=== PATIENT | female | born 1955 | race Caucasian/White ===

== ENCOUNTER 2018-03-20 15:12 | Observation (INO) | payer OTHER ==
--- NOTE | 2018-03-20 15:33 | ED ---
HPI Chest Pain - HPI Summary HPI Summary: A 62 y/o F presents to ED with c/o mid-sternal CP onset approx noon this date. The CP radiates to her jaw and epigastric abd intermittently. CP is rated as a 9 out of 10 at bedside and described as sharp. Associated sx: SOB, diaphoresis. Pt had a stress test in June 2017. She takes a baby aspirin daily. PMHx: DM, HTN; but denies COPD, PE, CT. - History of Current Complaint Chief Complaint: EDChestPainROMI Time Seen by Provider: 03/20/18 15:32 Hx Obtained From: Patient Onset/Duration: Started Hours Ago, Atraumatic, Still Present Timing: Constant Initial Severity: Severe Current Severity: Severe Pain Intensity: 8 Pain Scale Used: 0-10 Numeric Chest Pain Location: Mid Sternal Chest Pain Radiates: Yes Chest Pain Radiates To:: Jaw, Epigastric Character: Sharp/Stabbing Alleviating Factor(s): Upright Position Associated Signs and Symptoms: Positive: Shortness of Breath, Diaphoresis - Allergy/Home Medications Allergies/Adverse Reactions: Allergies Allergy/AdvReac Type Severity Reaction Status Date / Time insulin detemir Allergy Hives Verified 03/20/18 15:32 [From Levemir U-100 Insulin] Home Medications: Home Medications Aspirin 81 mg CHEW TAB* [Aspirin Low Dose TAB*] 81 mg PO DAILY 03/20/18 [ History Confirmed 03/20/18] Calcium Carbonate [Calcium] 500 mg PO DAILY 03/20/18 [History Confirmed 03/20/18 ] Dulaglutide (NF) [Trulicity (NF)] 0.75 mg SUBCUT WEEKLY 03/20/18 [History Confirmed 03/20/18] Ferrous Sulfate TAB* 325 mg PO DAILY 03/20/18 [History Confirmed 03/20/18] Insulin Glargine,Hum.rec.anlog [Basaglar Kwikpen U-100] 95 unit SUBCUT DAILY 07/07 [History Confirmed 03/20/18] Lisinopril TAB* [Prinivil TAB*] 10 mg PO DAILY 03/20/18 [History Confirmed 03/20] Metformin ER (NF) 1,000 mg PO BID 03/20/18 [History Confirmed 03/20/18] Multivitamins/Minerals TAB* [Theragran/minerals TAB*] 1 tab PO DAILY 03/20/18 [ History Confirmed 03/20/18] Omeprazole CAP* [Prilosec CAP* 20 MG] 40 mg PO DAILY 03/20/18 [History Confirmed 03/20/18] Rosuvastatin (NF) [Crestor] 20 mg PO DAILY 03/20/18 [History Confirmed 03/20/18] PMH/Surg Hx/FS Hx/Imm Hx Previously Healthy: No Endocrine/Hematology History: Reports: Hx Diabetes Cardiovascular History: Reports: Hx Hypertension Denies: Hx Myocardial Infarction Respiratory History: Denies: Hx Chronic Obstructive Pulmonary Disease (COPD), Hx Pulmonary Embolism Infectious Disease History: No Infectious Disease History: Denies: Traveled Outside the [place] in Last 30 Days - Social History Occupation: Unemployed - OTHER Lives: With Family Alcohol Use: None Hx Substance Use: No Substance Use Type: Reports: None Hx Tobacco Use: Yes Smoking Status (MU): Former Smoker Review of Systems Positive: Skin Diaphoresis. Negative: Fever Positive: Chest Pain Positive: Shortness Of Breath Positive: Abdominal Pain - radiating from CP Musculoskeletal: Other - pos: jaw pain radiating from CP All Other Systems Reviewed And Are Negative: Yes Physical Exam - Summary Physical Exam Summary: VITAL SIGNS: Reviewed. GENERAL: Patient is a well-developed, obese female who is lying comfortable in the stretcher. Patient is in mild distress secondary to SOB and CP. She is able to speak full sentences are bedside. HEAD AND FACE: No signs of trauma. No ecchymosis, hematomas or skull depressions. No sinus tenderness. EYES: PERRLA, EOMI x 2, No injected conjunctiva, no nystagmus. EARS: Hearing grossly intact. Ear canals and tympanic membranes are within normal limits. MOUTH: Oropharynx within normal limits. NECK: Supple, trachea is midline, no adenopathy, no JVD, no carotid bruit, no c- spine tenderness, neck with full ROM. CHEST: Symmetric, no tenderness at palpation. No reproducible CP. LUNGS: Clear to auscultation bilaterally. No wheezing or crackles. CVS: Regular rate and rhythm, S1 and S2 present, no murmurs or gallops appreciated. ABDOMEN: Soft, non-tender. No signs of distention. No rebound, no guarding, and no masses palpated. Bowel sounds are normal. EXTREMITIES: FROM in all major joints, no edema, no cyanosis or clubbing. NEURO: Alert and oriented x 3. No acute neurological deficits. Speech is normal and follows commands. SKIN: Dry and warm Triage Information Reviewed: Yes Vital Signs On Initial Exam: Initial Vitals Temp Pulse Resp BP Pulse Ox 98.2 F 68 20 130/70 97 03/20/18 15:23 03/20/18 15:23 03/20/18 15:23 03/20/18 15:23 03/20/18 15:23 Vital Signs Reviewed: Yes Diagnostics - Vital Signs Vital Signs Temp Pulse Resp BP Pulse Ox 03/20/18 15:23 98.2 F 68 20 130/70 97 - Laboratory Result Diagrams: 03/21/18 05:26 03/21/18 05:26 Lab Statement: Any lab studies that have been ordered have been reviewed, and results considered in the medical decision making process. - Radiology CXR Xray Interpretation: Positive (See Comments) - IMPRESSION: LOW LUNG VOLUMES, SMALL LEFT BASILAR INFILTRATE. ED provider has reviewed this report. This report is only to be considered final once signed by the Provider(s) as displayed in the "<Electronically Signed by >" field (s). Absence of a signature indicates the report is in a draft status and still needs to be finalized. In the event this document was created by someone other than the signing Provider, the individual initiating the document will be listed in the "Entered by:" or "Dictated by:" wilson. 1 of 1 Radiology Interpretation Completed By: Radiologist - EKG 1536 Cardiac Rate: NL - 74bpm EKG Rhythm: Sinus Rhythm ST Segment: Normal - no ST elevation Chest Pain Course/Dx - Course Assessment/Plan: A 62 y/o F presents to ED with c/o mid-sternal CP onset approx noon this date. The CP radiates to her jaw and epigastric abd intermittently. CP is rated as a 9 out of 10 at bedside and described as sharp. Associated sx: SOB, diaphoresis. Pt had a stress test in June 2017. She takes a baby aspirin daily. PMHx: DM, HTN; but denies COPD, PE, CT. Blood test result without any significant abnormality except for WBCs of 19.1, glucose 178, lactic acid is 2.5, magnesium 1.5 for which the patient was given magnesium IV. Chest x-ray impression, shows low lung volumes, small left basilar infiltrate. EKG shows no ST elevations. Im the ED course the patient was given Levaquin for the pneumonia, IV fluids and Toradol for the pain. Because of the patient's comorbidities and the presentation I decided to admit the patient to the hospital services. Therefore I discuss my physical exam, findings and test results with Dr. Kline from the hospitalist services who accepted the patient for admission. Patient is hemodynamically stable alert and oriented 3. - Chest Pain Differential Diagnosis/HQI/PQRI: Acute CT, ACS, Angina, CHF, Chest Wall, GI Disease, Lower Respiratory Infection, Pulmonary Edema - Diagnoses Provider Diagnoses: PNA (pneumonia) - Provider Notifications Discussed Care Of Patient With: Ubaldo Scanlon - hospitalist PA Time Discussed With Above Provider: 17:19 Instructed by Provider To: Admit As Inpatient Discharge - Sign-Out/Discharge Documenting (check all that apply): Patient Departure - ADM - Discharge Plan Condition: Stable Disposition: ADMITTED TO [facility] - Billing Disposition and Condition Condition: STABLE Disposition: Admitted to [facility] - Attestation Statements Document Initiated by Scribe: Yes Documenting Scribe: Kyle Antonio Provider For Whom Scribe is Documenting (Include Credential): Dr. Gómez Diaz MD Scribe Attestation: Kyle Elaine scribed for Dr. Gómez Diaz MD on 03/21/18 at 1825. Scribe Documentation Reviewed: Yes Provider Attestation: The documentation as recorded by the Kyle white accurately reflects the service I personally performed and the decisions made by me, Dr. Gómez Diaz MD
[2018-03-20 16:52] LABS: ABS Basophils 0 10^3/ul (0-0.2); ABS Eosinophils 0.1 10^3/ul (0-0.6); ABS Lymphocytes 1.1 10^3/ul (1.0-4.8); ABS Neutrophils 16.9 10^3/ul (1.5-7.7); ABS Nucleated RBC 0 10^3/ul; Eosinophil % 0.4 % (0-6); Hematocrit 36 % (35-47); Hemoglobin 11.2 g/dl (12.0-16.0); Mean Corpuscular HGB Conc 32 g/dl (31-36); Mean Corpuscular Hemoglobin 24 pg (27-31); Mean Corpuscular Volume 77 fL (80-97); Mean Platelet Volume 7.4 um3 (7.4-10.4); Nucleated Red Blood Cells % 0.1; Platelet Count 335 10^3/ul (150-450); Red Blood Count 4.61 10^6/ul (4.00-5.40); Red Cell Distribution Width 16 % (10.5-15); White Blood Count 19.1 10^3/ul (3.5-10.8)
[2018-03-20 17:01] LABS: EGFR Non-African American 61.5 (>60)
--- NOTE | 2018-03-20 17:01 | RAD ---
INDICATION: Chest pain. COMPARISON: There are no relevant prior studies available for comparison. TECHNIQUE: A portable view of the chest was obtained. FINDINGS: Cardiac and mediastinal contours appear to be within normal limits. The lungs are underinflated. There is a small infiltrate at the left lung base. No pleural effusion is seen. IMPRESSION: LOW LUNG VOLUMES, SMALL LEFT BASILAR INFILTRATE.
[2018-03-20] MEDS ORDERED: Ketorolac INJ* 30 MG/ML 1 ML VIAL IM ONE (17:14)
[2018-03-20] MEDS ORDERED: Levofloxacin 750 MG IVPREMIX(* 750 MG/150 ML BAG IVPB ONE (17:14)
[2018-03-20] MEDS ORDERED: Ketorolac INJ* 30 MG/ML 1 ML VIAL IV PUSH ONE (17:42)
[2018-03-20] MEDS ORDERED: NS 0.9% 1000 ML*IV.FLUID IV ONE (17:42)
[2018-03-20] MEDS ORDERED: Iodixanol* (CONTRAST) 320 MG/ML 100 ML SDV IV ONE ×2 (18:06→18:39)
[2018-03-20] MEDS ORDERED: Magnesium Sulfate 2 GM IV* 2 GM/50 ML BAG IVPB ONE (18:06)
[2018-03-20] MEDS ORDERED: Albuterol 2.5 MG/3 ML NEB.SOL* (0.083%) INH PRN (18:06)
[2018-03-20] MEDS ORDERED: Dextrose 50% Syringe 50 ML* 25 GM/50 ML SYRINGE IV PUSH PRN (18:11)
[2018-03-20] MEDS ORDERED: Morphine INJ* 4 MG/ML 1 ML SYRINGE (NEW SYRINGE VERSION) IV PRN (18:12)
[2018-03-20] MEDS ORDERED: NS 0.9% 1000 ML* 1,000 ML IV SCH (18:15)
--- NOTE | 2018-03-20 19:39 | RAD ---
EXAM: CT Angiography Chest With Intravenous Contrast CLINICAL HISTORY: 62 years old, female; Pain; Chest pain; Other: Sharp midsternal; Additional info: Chest pain, 5 + hour car travel TECHNIQUE: Axial computed tomographic angiography images of the chest with intravenous contrast using pulmonary embolism protocol. All CT scans at this facility use at least one of these dose optimization techniques: automated exposure control; mA and/or kV adjustment per patient size (includes targeted exams where dose is matched to clinical indication); or iterative reconstruction. MIP reconstructed images were created and reviewed. Coronal and sagittal reformatted images were created and reviewed. CONTRAST: 92 mL of visi 320 administered intravenously. COMPARISON: No relevant prior studies available. FINDINGS: Pulmonary arteries: Pulmonary arteries are well opacified to the subsegmental branches. Normal caliber main pulmonary artery. No filling defects throughout the pulmonary artery tree. Aorta: The aorta demonstrates mild atherosclerotic calcification. Lungs: Dependent subsegmental atelectasis posterior right lower lobe. Atelectasis versus parenchymal scarring medial basal and lateral basal segments left lower lobes. No bronchiectasis, peribronchial thickening, or luminal defects. No mass. Pleural space: Normal. No significant effusion. No pneumothorax. Heart: There is mild atherosclerotic calcification of the coronary arteries. No significant pericardial effusion. No evidence of RV dysfunction. Thyroid: No thyroid nodules. Bones/joints: The thoracic spine demonstrates moderate degenerative changes at multiple levels. No fractures. No suspicious bone lesions. No dislocation. Soft tissues: Patient post left mastectomy. Lymph nodes: Normal. No enlarged lymph nodes. IMPRESSION: 1. No pulmonary emboli. 2. Bibasilar atelectasis versus parenchymal scarring.
[2018-03-20 20:02] LABS: Urine Appearance Cloudy; Urine Blood Negative (Negative); Urine Color Yellow; Urine Ketones Negative (Negative); Urine Protein 1+(30 mg/dL) (Negative); Urine Red Blood Cell Trace(0-2/hpf) (Absent); Urine Specific Gravity 1.014 (1.010-1.030); Urine Urobilinogen Negative (Negative); Urine White Blood Cell 1+(6-10/hpf) (Absent)
[2018-03-20] MEDS: Heparin VIAL(*) 5000 UNITS/ML VIAL (FIVE THOUSAND) SUBCUT SCH (21:01)
--- NOTE | 2018-03-20 21:33 | HP ---
CC: Dr. Post at [phone], [facility], [facility] [place] [address] * HISTORY AND PHYSICAL: DATE OF ADMISSION: 03/20/18 - ROOM #446 PRIMARY CARE PROVIDER: Dr. Post, number is [phone]. MY ATTENDING PHYSICIAN WHILE IN THE HOSPITAL: Dorothea Wayne MD * (report dictated by Ubaldo Scanlon NP) CHIEF COMPLAINT: Chest pain. HISTORY OF PRESENT ILLNESS: Mrs. Taylor is a 62-year-old female patient. She carries a history of diabetes, hypertension, hyperlipidemia, GERD, BJ, and breast cancer status post mastectomy. 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 She comes in today. 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 She states that she did become sweaty. She said the pain did at times go up into her neck, but she states the pain has been constant all day long and it is worse with taking a deep breath. She has felt short of breath. She does not elicit having a recent cough, fever, chills. No URI symptoms. No rhinorrhea or sore throat or feeling stuffed up or congested. No recent sick contacts. She states that she felt nauseated, but she did not vomit. No abdominal pain. She states the pain has been constant in nature and just escalating throughout the entire day. She was at training today and there was concern there by staff because she was becoming diaphoretic, so they felt that she should come to the ER. They called 911 and she presented here to the ER. She states the pain is still present now. She states again it is worse with taking a deep breath and that she feels better if she takes shallow breath. She denies any leg swelling. Denies any recent surgery, but she did recently travel from [place]. She came in to the ED. She was found to have a white count, possible pneumonia on chest x-ray and because of these findings, we were asked to evaluate for admission. PAST MEDICAL HISTORY: Significant for: 1. Diabetes. 2. Hypertension. 3. Hyperlipidemia. 4. GERD. 5. BJ. 6. Breast cancer. PAST SURGICAL HISTORY: 1. She has had a mastectomy on the left side. 2. She has had an appendectomy. 3. Unilateral oophorectomy, the side is unknown. 4. She has had a left lower lobectomy for carcinoid tumor. 5. She has had Achilles tendon repair. MEDICATIONS: Home meds according to the list provided include: 1. Trulicity 0.75 mg subcu weekly. 2. Ferrous sulfate 325 mg p.o. daily. 3. Calcium carbonate 500 mg daily. 4. Multivitamin 1 tablet daily. 5. Aspirin 81 mg daily. 6. Crestor 20 mg daily. 7. Lisinopril 10 mg daily. 8. Omeprazole 40 mg daily. 9. Insulin glargine 95 units subcu daily. 10. Metformin 1000 mg p.o. b.i.d. ALLERGIES TO MEDICATIONS: Include INSULIN DETEMIR. FAMILY HISTORY: Her mother had lung cancer. She at the age of 69. Father had a history of diabetes and heart disease. SOCIAL HISTORY: She does not smoke. Does not drink. Surrogate decision maker is her daughter. REVIEW OF SYSTEMS: There is no documented fever. She denied any significant weight change. There is no double vision. She denied having any ear discharge. There is no rhinorrhea. She denied having any sore throat. No thyroid enlargement. There is chest pain per my HPI. There is no orthopnea. No nocturnal dyspnea. No abdominal pain. There was nausea but no vomiting. No dysuria. No frequency. No seizure, no loss of consciousness. No pruritus and no skin ulcerations. Review of 14 systems was completed, all others negative. PHYSICAL EXAMINATION GENERAL: Mrs. Taylor is a 62-year-old female patient. She is morbidly obese. She is sitting in the ED stretcher. She does not appear to be in any acute distress. She is well nourished, well developed. VITAL SIGNS: Blood pressure 159/81 with a pulse of 92, respirations were 20, O2 saturation is 97%, she is now on 2 L nasal cannula, and her temperature was 98.2. HEENT: Head: Atraumatic. Eyes: Sclerae anicteric and not pale. Throat: Oral mucosa appears to be moist. No oropharyngeal erythema. NECK: Supple. LUNGS: Clear to auscultation bilaterally. No wheezes, rales, or rhonchi. HEART: Sounds S1, S2. Regular rate and rhythm. No murmurs, rubs, or gallops. ABDOMEN: Soft, flat, nontender. Bowel sounds were present. EXTREMITIES: Pulses were 2+. She is moving all 4 extremities with 5/5 strength. No peripheral edema. NEUROLOGICAL: She is awake, alert, oriented x3. Speech is clear. Tongue is midline. No gross obvious focal deficits. SKIN: Intact. LABORATORY DATA/DIAGNOSTIC STUDIES: WBC of 19.1, RBC of 4.61, hemoglobin 11.2 , hematocrit of 36, platelet count of 335,000. PTT was 25.7. Sodium was 138, potassium of 3.9, chloride of 98, bicarb 29, BUN 17, creatinine of 0.92, glucose 178. Lactate 2.5. Calcium 9.9. Mag 1.5. Total bili 0.5, AST 29, ALT 26, alk phos 80. CK 82, CK-MB 1.9. Troponin 0.00. BNP of 56. Albumin of 4.3. She did have a chest x-ray obtained today. Impression: Low lung volumes, small left basilar infiltrate. When I reviewed it, she did have poor inspiratory effort. It was a poor quality x-ray. There was again possible infiltrate in the left side, but no gross effusions were noted. She had serial EKGs here in the ED. Initially when she came in, she had a normal sinus rhythm, rate of 74. She had no ST elevations. There were T-wave inversions in lead 3 and aVF. Repeat EKG, the EKG does appear to be unchanged. MS is 0.13. Again, repeat EKG does not show any ST elevations or acute changes compared to the previous EKG. Old medical records were reviewed. ASSESSMENT AND PLAN: Mrs. Taylor is a 62-year-old female patient with multiple medical problems, coming into our emergency department today with sudden onset of complaints of chest pain. We were asked to evaluate for admission. She will be admitted under observation status for: 1. Chest pain. Etiology is unclear, but her story is certainly concerning. The patient has a history of breast cancer, also a carcinoid tumor. In addition to this, she is obese, she has recent travel and it is a sudden onset of constant pain. I do worry about pulmonary embolism. She is requiring O2 now , so I have ordered a CTA of the chest. She also is at risk for acute coronary syndrome, so I will cycle her troponins. If the CTA is negative, I will get a stress test. Also, there is question of pneumonia, but her story just does not fit pneumonia in the sense that she has been feeling well in the days leading up to this. To be safe, I will add on ESR and CRP. I will also check a rapid flu swab as well, although I suspect that is less likely and we will place her on telemetry. We will get serial EKGs, serial troponins and we will continue to monitor her. She is already on statin, aspirin. If the troponins elevate, obviously I will get low threshold for cardiology input and I would put her on a beta-rick, in addition to this, statin and aspirin if her troponins bump but her story is atypical for acute coronary syndrome and it is reproducible pleuritic type pain. 2. Diabetes. She will be on a lispro sliding scale. 3. Hypertension. I am holding her lisinopril until I definitively rule out pneumonia. I do get the concern because of the leukocytosis. 4. Hyperlipidemia. Continue statin therapy. 5. Gastroesophageal reflux disease. Continue PPI therapy. 6. Obstructive sleep apnea. I have ordered a CPAP. 7. History of breast cancer. Follow with her PCP. 8. Leukocytosis. Again, etiology unclear, but I am going to panculture her. We will send off urine. She did receive a dose of antibiotics. I am not going to continue these because again the story does not really fit with pneumonia. She has not been having fevers or chills, so again I am going to just panculture. If a source presents itself or she spikes fevers, I certainly will go ahead and treat. She does have sirs criteria in the form of tachycardia, but again pulmonary embolism could cause the tachycardia and the tachypnea. I am just going to hydrate her, panculture her, and hold on antibiotics. I discussed at this point with my attending and she was in agreement. 9. DVT prophylaxis. She is high risk. I will go ahead and place her on heparin subcu. 10. Code status. Full code. 11. Fluids, electrolytes, and nutrition. I am replacing her magnesium. It was 1.5. I am also going to go ahead and put her on a consistent carb diet. TIME SPENT: On admission was 60 minutes, greater than half of the time spent face- to-face with the patient obtaining my history and physical, the other half of the time was spent going over the plan of care with the patient and implementing the plan of care. I did discuss the plan with my attending, Dr. Wayne; she is in agreement. UBALDO SCANLON, TRUCK DRIVING [id number]/[id number]/CPS #: [id number] YARITZA
[2018-03-20] MEDS ORDERED: Ketorolac INJ* 15 MG/ML 1 ML VIAL IV PUSH ONE (22:15)
[2018-03-21] MEDS: Heparin VIAL(*) 5000 UNITS/ML VIAL (FIVE THOUSAND) SUBCUT SCH ×3 (05:35→21:45)
[2018-03-21] MEDS ORDERED: Ketorolac INJ* 15 MG/ML 1 ML VIAL IV PUSH ONE (05:41)
[2018-03-21 05:44] LABS: ABS Basophils 0 10^3/ul (0-0.2); ABS Eosinophils 0.2 10^3/ul (0-0.6); ABS Lymphocytes 1.6 10^3/ul (1.0-4.8); ABS Monocytes 0.9 10^3/ul (0-0.8); ABS Neutrophils 7.8 10^3/ul (1.5-7.7); ABS Nucleated RBC 0 10^3/ul; Eosinophil % 1.8 % (0-6); Hematocrit 31 % (35-47); Lymphocyte % 15.3 % (25-47); Mean Corpuscular HGB Conc 32 g/dl (31-36); Mean Corpuscular Hemoglobin 25 pg (27-31); Mean Corpuscular Volume 76 fL (80-97); Mean Platelet Volume 7.5 um3 (7.4-10.4); Nucleated Red Blood Cells % 0.1; Platelet Count 267 10^3/ul (150-450); Red Blood Count 4.07 10^6/ul (4.00-5.40); Red Cell Distribution Width 16 % (10.5-15); White Blood Count 10.6 10^3/ul (3.5-10.8)
[2018-03-21 06:11] LABS: EGFR Non-African American 68.3 (>60)
[2018-03-21] MEDS: Insulin GLARGINE(*) 1 UNITS UNIT SUBCUT SCH (08:37)
[2018-03-21] MEDS: Insulin LISPRO* 1 UNITS UNIT SUBCUT SCH ×3 (08:38→16:58)
[2018-03-21] MEDS: Atorvastatin* 40 MG TAB PO SCH (08:39)
[2018-03-21] MEDS: Azithromycin IV(*) 500 MG in NS 0.9% 250 ML* 250 ML IVPB SCH (08:39)
[2018-03-21] MEDS: Aspirin 81 mg CHEW TAB* 81 MG TAB.CHEW PO SCH (08:39)
[2018-03-21] MEDS: Ferrous Sulfate TAB* 325 MG PO SCH (08:39)
[2018-03-21] MEDS: Omeprazole CAP* 20 MG PO SCH (08:39)
[2018-03-21] MEDS: cefTRIAXone(*) 1 GM in NS 0.9% 50 ML* 50 ML IVPB SCH (09:56)
--- NOTE | 2018-03-21 11:14 | ECHO ---
Patient: VIOLETA BETANCOURT [facility] Rec#: [id number] : 1955 Date: 03/21/2018 Age: 62y Height: 165 cm / 65.0 in Weight: 116 kg / 255.7 lbs Sex: F BSA: 2.2 Room#: [facility] Admit Date#: 03/20/2018 Type: Inpatient Referring: Ubaldo Scanlon NP Reading: Ga Nelson MD Contact Center Professional: Lanie Bernal RDCS,RDMS Transthoracic Echocardiogram Indication: CP BP: 125/73 HR: 84 Rhythm: NSR Findings History: DM, HTN, HLD, BJ, carcinoid tumor of lung Technical Comments: The study quality is good. Left Ventricle: The left ventricular chamber size is normal. Moderate concentric left ventricular hypertrophy is observed. Global left ventricular wall motion and contractility are within normal limits. There is normal left ventricular systolic function. The estimated ejection fraction is 60-65%. Abnormal left ventricular diastolic function is observed. Left Atrium: The left atrium is mild to moderately dilated. Right Ventricle: The right ventricular chamber size and systolic function are within normal limits. The right ventricle wall thickness is mildly increased. Right Atrium: The right atrium is mildly dilated. Aortic Valve: The aortic valve structure is not well visualized. The aortic valve leaflets are mildly thickened. There is no evidence of aortic regurgitation. Mitral Valve: There is mitral annular calcification. The mitral valve leaflets are moderately thickened. There is mild mitral regurgitation. There is mild to moderate mitral stenosis. The mean gradient across the mitral valve is 11 mmHg. The pressure half time of the mitral valve is 142 msec. Tricuspid Valve: The tricuspid valve leaflets are normal. There is no evidence of tricuspid valve regurgitation. Unable to estimate the right ventricular systolic pressure. Pulmonic Valve: The pulmonic valve structure is not well visualized. There is no evidence of pulmonic valve thickening. There is a trace pulmonic regurgitation. Pericardium: There is no significant pericardial effusion. Aorta: The aortic root appears normal. There is no dilatation of the aortic arch. Pulmonary Artery: The main pulmonary artery appears normal. Venous: The inferior vena cava is not visualized. Summary: There was not any prior study for comparison. Conclusions Moderate concentric left ventricular hypertrophy is observed. Global left ventricular wall motion and contractility are within normal limits. There is normal left ventricular systolic function. The estimated ejection fraction is 60-65%. There is no evidence of aortic regurgitation. There is mild mitral regurgitation. There is mild to moderate mitral stenosis. The mean gradient across the mitral valve is 11 mmHg. There is no evidence of tricuspid valve regurgitation. Unable to estimate the right ventricular systolic pressure. There is no significant pericardial effusion. Measurements Name Value Normal Range RVIDd (AP) 2D 2.3 cm (0.9 - 2.6) RVDdMajor (2D) 2.2 cm (2.2 - 4.4) RAd ISD 4CH 5.6 cm (3.4 - 4.9) RA (A4C)W 4.1 cm (2.9 - 4.6) IVSd (2D) 1.5 cm (0.6 - 1) LVPWd (2D) 1.4 cm (0.6 - 1) LVIDd (2D) 3.7 cm (3.6 - 5.4) LVIDs (2D) 2.7 cm - LV FS (2D) 27 % (25 - 45) Aortic Annulus 2 cm (1.4 - 2.6) Ao root diameter (2D) 2.7 cm (2.1 - 3.5) Ascending Ao 3 cm (2.1 - 3.4) Aortic arch 3.3 cm (1.8 - 3.4) LA dimension (AP) 2D 5 cm (2.3 - 3.8) LAd ISD 4CH 6.3 cm (2.9 - 5.3) LA ISD 4CH W 4.6 cm (2.5 - 4.5) Name Value Normal Range LA ESV BP (A/L) index 39 ml/m2 - Name Value Normal Range MV E-wave Vmax 1.8 m/sec - MV deceleration time 322 msec - MV A-wave Vmax 1.9 m/sec - MV E:A ratio 0.9 ratio - LV septal e' Vmax 0.05 m/sec - LV lateral e' Vmax 0.04 m/sec - LV E:e' septal ratio 36 ratio - LV E:e' lateral ratio 45 ratio - Name Value Normal Range AV Vmax 1.9 m/sec - AV VTI 41 cm - AV peak gradient 15 mmHg - AV mean gradient 9 mmHg - LVOT diameter 2 cm - LVOT Vmax 1.6 m/sec - LVOT VTI 31 cm - LVOT peak gradient 10 mmHg - LVOT mean gradient 6 mmHg - KEVIN (continuity Vmax) 2.6 cm2 - KEVIN (continuity VTI) 2.4 cm2 - GLADIS Vmax 0.9 m/sec - Name Value Normal Range MV Vmax 2.1 m/sec - MV VTI 66 cm - MV peak gradient 18 mmHg - MV mean gradient 11 mmHg - MV PHT 142 msec - MVA (PHT) 1.6 cm2 - MVA (continuity VTI) 1.5 cm2 - Name Value Normal Range RAP 8 mmHg - Name Value Normal Range PV Vmax 0.9 m/sec - PV peak gradient 3.2 mmHg -
--- NOTE | 2018-03-21 16:05 | PN ---
Subjective Date of Service: 03/21/18 Interval History: Patient was seen and examined earlier today. Reports feeling better over all. Still has very mild pluritic chest pain with deep inspiration, no pain at rest or with exertion. Some productive cough today, but no fever or chills. 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 Hx EGD with polys removed from GE junction. Patient denies any melena or hematemesis. Family History: Unchanged from Admission Social History: Unchanged from Admission Past Medical History: Unchanged from Admission Objective Active Medications: Acetaminophen (Tylenol Tab*) 650 mg PO Q4H PRN PRN Reason: FEVER/PAIN Albuterol (Ventolin 2.5 Mg/3 Ml Neb.Harmony*) 2.5 mg INH Q2H PRN PRN Reason: SOB/WHEEZING Aspirin (Aspirin 81 Mg Chew Tab*) 81 mg PO DAILY [facility] Last Admin: 03/21/18 08:39 Dose: 81 mg Atorvastatin Calcium (Lipitor*) 40 mg PO DAILY [facility] Last Admin: 03/21/18 08:39 Dose: 40 mg Dextrose (D50w Syringe 50 Ml*) 12.5 gm IV PUSH .FOR FS < 60 - SS PRN PRN Reason: FS < 60 Ferrous Sulfate (Ferrous Sulfate Tab*) 325 mg PO DAILY [facility] Last Admin: 03/21/18 08:39 Dose: 325 mg Heparin Sodium (Porcine) (Heparin Vial(*)) 5,000 units SUBCUT Q8HR [facility] Last Admin: 03/21/18 14:26 Dose: 5,000 units Sodium Chloride (Ns 0.9% 1000 Ml*) 1,000 mls @ 100 mls/hr IV PER RATE [facility] Last Admin: 03/20/18 21:10 Dose: 100 mls/hr Ceftriaxone Sodium 1 gm/ (Sodium Chloride) 50 mls @ 200 mls/hr IVPB Q24H [facility] Last Admin: 03/21/18 09:56 Dose: 200 mls/hr Azithromycin 500 mg/ Sodium (Chloride) 250 mls @ 250 mls/hr IVPB Q24H [facility] Last Admin: 03/21/18 08:39 Dose: 250 mls/hr Insulin Glargine (Lantus(*)) 95 units SUBCUT DAILY [facility] Last Admin: 03/21/18 08:37 Dose: 95 units Insulin Human Lispro (Humalog*) 0 units SUBCUT AC [facility]; Protocol Last Admin: 03/21/18 12:16 Dose: 2 units Morphine Sulfate (Morphine Inj (Syringe)*) 2 mg IV Q4H PRN PRN Reason: PAIN - MILD Last Admin: 03/20/18 21:01 Dose: 2 mg Omeprazole (Prilosec Cap*) 40 mg PO DAILY [facility] Last Admin: 03/21/18 08:39 Dose: 40 mg Sucralfate (Carafate*) 1 gm PO TID [facility] Vital Signs - 8 hr 03/21/18 03/21/18 03/21/18 08:31 11:22 15:17 Temperature 98.4 F 97.8 F 99.8 F Pulse Rate 86 79 87 Respiratory 16 20 16 Rate Blood Pressure 138/61 121/70 155/79 (mmHg) O2 Sat by Pulse 96 96 96 Oximetry Oxygen Devices in Use Now: None Appearance: Morbidly obese female, appears comfortable and in NAD. Eyes: No Scleral Icterus, PERRLA Ears/Nose/Mouth/Throat: Clear Oropharnyx, Mucous Membranes Moist Neck: NL Appearance and Movements; NL JVP, Trachea Midline Respiratory: Symmetrical Chest Expansion and Respiratory Effort, Clear to Auscultation Cardiovascular: NL Sounds; No Murmurs; No JVD, RRR Abdominal: NL Sounds; No Tenderness; No Distention Extremities: No Edema Neurological: Alert and Oriented x 3 Nutrition: Taking PO's Result Diagrams: 03/21/18 05:26 03/21/18 05:26 Additional Lab and Data: . Microbiology and Other Data: Microbiology 03/20/18 19:45 Legionella Urinary Antigen - Final Urine Negative Legionella Antigen Streptococcus pneumoniae Ag Screen - Final Negative S. pneumo Antigen 03/20/18 19:37 Influenza Types A,B Antigen - Final Nasopharyngeal Specimen received for Influenza A/B Molecular testing Diagnostic Imaging: Patient Name: VIOLETA TAYLOR Medical Record#: [id number] Ordering Physician: Ubaldo Scanlon ONLINE PRODUCER Acct.#: [id number] : 1955 Age: 62 Sex: F Location: EMERGENCY DEPARTMENT Exam Date: 03/20/18 1800 ADM Status: REG ER Order Information: CTA CHEST Accession Number: [id number] CPT: 84913 EXAM: CT Angiography Chest With Intravenous Contrast IMPRESSION: 1. No pulmonary emboli. 2. Bibasilar atelectasis versus parenchymal scarring. <Electronically signed by Sarina Boswell MD in OV> 03/20/181937 Patient Name: VIOLETA TAYLOR Medical Record#: [id number] Ordering Physician: Gómez Diaz MD Acct.#: [id number] : 1955 Age: 62 Sex: F Location: EMERGENCY DEPARTMENT Exam Date: 03/20/181531 ADM Status: PRE ER Order Information: CHEST AP PORTABLE Accession Number: [id number] CPT: 97090 INDICATION: Chest pain. IMPRESSION: LOW LUNG VOLUMES, SMALL LEFT BASILAR INFILTRATE. <Electronically signed by Julian Rahman MD in OV> 03/20/181657 EKG Data: . Assess/Plan/Problems-Billing Assessment: A 62 y/o female with multiple medical issues, including HTN, HLD, DM, GERD with Carter's esophagus, who presented to ED with acute onset of pluritic chest pain of unclear etiology. - Patient Problems (1) Chest pain Current Visit: Yes Status: Acute Comment: - Appears to pluritic in nature, relived with Morphine - JOSEY reviewed, no evidence of pericardial effusion - Troponins negative, no EKG changes overnight - Per daughter, hx Carter's esophagus with prior EGDs in the past. I suspect her pain (which she describes more like mid-chest burning) is likely 2/2 GERD vs PUD - Will continue PPI coverage, added Carafate - Discussed with daughter GI consultation; however, since patient lives in [facility] (here on a business trip) she would rather F/U with her GI doctor at home. - Less suspecion for pneumonia, negative leginella and s. pneumo antigens. Will continue Abx coverage for another day since her leukocytosis resolved today. (2) Leukocytosis Current Visit: Yes Status: Acute Comment: - Resolved (3) HTN (hypertension) Current Visit: Yes Status: Acute Comment: - Lisinopril on hold - Normotensive today (4) HLD (hyperlipidemia) Current Visit: Yes Status: Acute Comment: - Continue statin therapy (5) GERD (gastroesophageal reflux disease) Current Visit: Yes Status: Acute Comment: - As mentioned, with hx Carter's esophagus - Continue PPI coverage, added Carafate - Plan to F/U with her GI doctor at home - Check stool for occult blood. - Hemodynamically stable (6) Morbid obesity Current Visit: Yes Status: Acute Comment: - Supportive care (7) Hx of breast cancer Current Visit: Yes Status: Acute Comment: - No active issues (8) DVT prophylaxis Current Visit: Yes Status: Acute Comment: - SubQ Heparin (9) Full code status Current Visit: Yes Status: Acute (10) BJ (obstructive sleep apnea) Current Visit: Yes Status: Acute Comment: - C-PAP Status and Disposition: Inpatient. Anticipate discharge to home tomorrow if medically stable.
[2018-03-21] MEDS: Sucralfate TAB* 1 GM PO SCH ×2 (16:15→21:45)
[2018-03-21] MEDS: Acetaminophen TAB* 325 MG PO PRN (18:04)
[2018-03-22] MEDS: Acetaminophen TAB* 325 MG PO PRN ×2 (03:01→08:50)
[2018-03-22] MEDS: Heparin VIAL(*) 5000 UNITS/ML VIAL (FIVE THOUSAND) SUBCUT SCH (06:07)
[2018-03-22 06:44] LABS: ABS Basophils 0.1 10^3/ul (0-0.2); ABS Eosinophils 0.5 10^3/ul (0-0.6); ABS Lymphocytes 1.8 10^3/ul (1.0-4.8); ABS Monocytes 0.8 10^3/ul (0-0.8); ABS Neutrophils 6.7 10^3/ul (1.5-7.7); ABS Nucleated RBC 0 10^3/ul; Eosinophil % 5.4 % (0-6); Hematocrit 32 % (35-47); Hemoglobin 10.3 g/dl (12.0-16.0); Lymphocyte % 17.8 % (25-47); Mean Corpuscular HGB Conc 33 g/dl (31-36); Mean Corpuscular Hemoglobin 25 pg (27-31); Mean Corpuscular Volume 77 fL (80-97); Mean Platelet Volume 7.4 um3 (7.4-10.4); Nucleated Red Blood Cells % 0.1; Platelet Count 265 10^3/ul (150-450); Red Cell Distribution Width 15 % (10.5-15); White Blood Count 9.8 10^3/ul (3.5-10.8)
[2018-03-22] MEDS: Insulin GLARGINE(*) 1 UNITS UNIT SUBCUT SCH (08:41)
[2018-03-22] MEDS: Omeprazole CAP* 20 MG PO SCH (08:41)
[2018-03-22] MEDS: Sucralfate TAB* 1 GM PO SCH (08:41)
[2018-03-22] MEDS: Atorvastatin* 40 MG TAB PO SCH (08:41)
[2018-03-22] MEDS: Aspirin 81 mg CHEW TAB* 81 MG TAB.CHEW PO SCH (08:42)
[2018-03-22] MEDS: Ferrous Sulfate TAB* 325 MG PO SCH (08:42)
[2018-03-22] MEDS: cefTRIAXone(*) 1 GM in NS 0.9% 50 ML* 50 ML IVPB SCH (09:03)
[2018-03-22] MEDS: Insulin LISPRO* 1 UNITS UNIT SUBCUT SCH ×2 (09:24→11:55)
[2018-03-22 09:26] LABS: EGFR Non-African American 69.2 (>60)
[2018-03-22] MEDS: Azithromycin IV(*) 500 MG in NS 0.9% 250 ML* 250 ML IVPB SCH (10:10)
[2018-03-22 11:02] VITALS: BP 158/91
[2018-03-22] MEDS ORDERED: Regadenoson* 0.4 MG/5 ML SYRINGE ONE (12:23)
--- NOTE | 2018-03-22 13:38 | RAD ---
HISTORY: Chest pain COMPARISONS: None TECHNIQUE: A one-day rest myocardial perfusion study was performed. The patient deferred stress imaging.. Gated SPECT imaging was performed, with CT-based attenuation correction DOSE: Rest: Technetium 99m tetrofosmin, 10.2 millicuries, injected at 6:50 AM on March 22, 2018 Pharmacologic agent: None FINDINGS: MOTION: Not evaluated on rest only imaging. PERFUSION: There are perfusion defects of the inferior lateral wall that resolved with attenuation correction. OTHER: None IMPRESSION: NO PERFUSION DEFECTS ON REST ONLY IMAGING, THOUGH THIS IS A LIMITED EVALUATION GIVEN THE ABSENCE OF STRESS IMAGING.
--- NOTE | 2018-03-23 06:19 | DS ---
DISCHARGE SUMMARY: DATE OF ADMISSION: 03/20/18 DATE OF DISCHARGE: 03/22/18 PATIENT OF ADMITTING HOSPITALIST: Dorothea Wayne MD * (DICTATED BY JAIRON KESSLER) PRIMARY CARE PROVIDER: Dr. Post, [place]. ADMISSION DIAGNOSES: 1. Chest pain. 2. Diabetes mellitus. 3. Hypertension. 4. Hyperlipidemia. 5. Gastroesophageal reflux disease. 6. Osteoarthritis. 7. Breast cancer. 8. Morbid obesity. DISCHARGE DIAGNOSES: 1. Chest pain. 2. Diabetes mellitus. 3. Hypertension. 4. Hyperlipidemia. 5. Gastroesophageal reflux disease. 6. Osteoarthritis. 7. Breast cancer. 8. Morbid obesity. 9. Possible community-acquired pneumonia. ADMITTING PHYSICIAN: Dorothea Wayne MD CONSULTATIONS: None. CHIEF COMPLAINT: Chest pain. HISTORY OF PRESENT ILLNESS: Mrs. Taylor is a 62-year-old female who has past medical history significant for hypertension, hyperlipidemia, type 2 diabetes mellitus, GERD, osteoarthritis, and breast cancer for which she is status post mastectomy who presented to the emergency room on 03/20/18 with complaints of sudden onset of chest discomfort. 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 She developed these symptoms shortly before lunch. She reports that she had history of GERD and Barrette's esophagus; however, she never had any similar pain in the past. She denied any recent cough, fever, or chills. No upper respiratory symptoms recently. She denied any abdominal pain , nausea, vomiting or changes in the bowel habits. She was evaluated in the emergency room and found to have leukocytosis with a possibility of pneumonia on a chest x-ray for which she was admitted under hospitalist services. HOSPITAL COURSE: The patient was admitted to the telemetry unit for treatment of possibility of community-acquired pneumonia. She notes that her chest pain had significantly improved after her admission. She did not tell medical staff about the history of Barrette's esophagus and most of the story was obtained from her daughter, who told me that her last EGD was done earlier this spring with removal of some polyps from the GE junction. The actual operative note for the EGD is not available at present time. The patient continued her PPI coverage while she has been in the hospital and Carafate was added to her coverage presumed history of PUD. Her troponin was checked and trended to 0. She had no EKG changes on admission. She was started empirically with azithromycin and ceftriaxone and her white count was improved on the second day. She was ambulatory out of bed and denied any chest pain at all. She tolerated diet with no nausea or vomiting. Plans were made for her to have a stress test in the hospital prior to discharge. The patient was kept n.p.o. overnight and went to the nuclear medicine suite for stress test this morning. She had the first part of the stress test done and then she returned back to her room. Unfortunately, a STEMI call in the emergency room was activated and the Nuclear Medicine lab was busy for which the second part of the stress test was not performed yet today. The patient and her daughter were eager to go back home since they have [address] back to [place]. Daughter and the patient expressed desire to sign against medical advice paperwork so they can be discharged from the hospital. I had a long discussion with them in the room today and went through the rationale of staying in the hospital to finish the stress test today. I also discussed with her the risk and the possibility of acute coronary syndrome and worsening chest pain symptoms, possibility of heart attack or even if the patient decides to leave. She was awake, alert, and oriented, capable of making her own decision and witnessed by her daughter, Gifty Stevens, in the room and she decided to leave the hospital against medical advice. AMA paperwork was filled and signed. I encouraged her to follow up immediately upon returning home with her GI doctor for possibility of upper endoscopy sometime this week as well as to follow up with her editor managing newspaper to evaluate for repeat stress test if indicated. The patient again is clinically stable and mentally capable of making her own decision. She will be discharged against medical advice from [facility] today and to follow up with her editor managing newspaper and director of retention upon arrival home in [place]. I will continue covering her with antibiotics for the possibility of community- acquired pneumonia and she will continue all her home meds to follow up with her specialist upon returning home. DISCHARGE MEDICATIONS: Include: 1. Aspirin 81 mg p.o. daily. 2. Calcium 500 mg p.o. daily. 3. Trulicity 0.75 mg subcu injections once weekly. 4. Ferrous sulfate 325 mg p.o. daily. 5. Insulin glargine 95 units subcu once daily. 6. Lisinopril 10 mg p.o. daily. 7. Metformin 1000 mg p.o. b.i.d. 8. Multivitamin tablets 1 tab p.o. daily. 9. Omeprazole 40 mg p.o. daily. 10. Crestor 20 mg p.o. daily. 11. Azithromycin Z-Edgard use as directed x5 days. 12. Carafate 1 g p.o. t.i.d. JAIRON KESSLER [id number]/[facility] #: [id number] MTDD
== END 2018-03-22 12:25 | disposition left against medical advice (07) ==
LOC: ED 15:12 → MEDTELE 19:41
PROVIDERS: ADMIT Pediatrics; ATTEND Internal Medicine
DX: R07.9 Chest pain, unspecified (principal); E11.9 Type 2 diabetes mellitus without complications; I10 Essential (primary) hypertension; E78.5 Hyperlipidemia, unspecified; K21.9 Gastro-esophageal reflux disease without esophagitis; D72.829 Elevated white blood cell count, unspecified; E66.01 Morbid (severe) obesity due to excess calories; I51.7 Cardiomegaly; I05.9 Rheumatic mitral valve disease, unspecified; Z85.3 Personal history of malignant neoplasm of breast; Z79.899 Other long term (current) drug therapy; Z79.4 Long term (current) use of insulin; G47.33 Obstructive sleep apnea (adult) (pediatric); Z79.84 Long term (current) use of oral hypoglycemic drugs; Z82.49 Family history of ischemic heart disease and other diseases of the circulatory system; Z79.82 Long term (current) use of aspirin; Z88.8 Allergy status to other drugs, medicaments and biological substances; Z87.891 Personal history of nicotine dependence; R06.02 Shortness of breath
CPT/HCPCS: 36415; 71045; 71275; 78451; 80048; 80053; 81003; 81015; 82550; 82553; 83605; 83735; 83880; 84145; 84443; 84484; 85025; 85610; 85652; 85730; 86140; 87040; 87086; 87899; 93005; 93306; 94660; 96365; 96366; 96367; 96372; 96375; 96376; 99284; A9270-GY; A9502; G0378; J0456; J0696; J1644; J1885; J2270; J2785; J3475; Q9967